=== PATIENT | male | born 1980 | race Caucasian/White ===

== ENCOUNTER 2017-01-15 14:09 | Emergency (ER) | payer MEDICAID, OTHER ==
[~2017-01-15] VITALS: Ht 167.6 cm; Wt 75.0 kg
[~2017-01-15 14:09] MED LIST: CYCL-319 PO; HYDR-3498 PO; IBUP400T22 PO
[2017-01-15 14:13] VITALS: Ht 167.6 cm; Wt 75.0 kg
[2017-01-15] MEDS ORDERED: KETOROLAC 60 MG INJ IM STA (16:09)
--- NOTE | 2017-01-15 16:49 | RADRPT ---
PROCEDURE: XR Left Foot. CLINICAL INDICATION: Left foot pain. TECHNIQUE: Three views. Frontal, lateral, and oblique. COMPARISON: None. FINDINGS: There is no fracture or dislocation. The soft tissues are normal. Articular surfaces are intact. There is an os trigonum, a normal variant. There is no lytic or blastic lesion. There is no radiopaque foreign body. IMPRESSION: 1. Os trigonum, a normal variant. 2. Otherwise normal images of the left foot. RPTAT: QQ .Ramesh Angeles MD, MD Date Time Electronically viewed and signed by .Ramesh Angeles MD, MD on 01/15/2017 16:48 .R/
[2017-01-15] MEDS ORDERED: IBUP-1542 PO (17:19)
--- NOTE | 2017-01-15 17:50 | ERD ---
ER Documentation Chief Complaint Date/Time DATE: 01/15/17 TIME: 17:46 Chief Complaint Complains of left foot pain HPI 36-year-old female patient with with no significant past medical history presents the ED complaining of left foot pain started 3 months ago, due to an injury. States that he was trying to jump a fence and accidentally injured his left foot. Denies any bilateral ankle pain. Denies any nausea, vomiting, sensation, loss of range of motion, fever, chills. Denies any head or neck injuries. Denies any loss of consciousness. ROS All systems reviewed and are negative except as per history of present illness. Medications Home Meds Active Scripts Ibuprofen* (Motrin*) 600 Mg Tab, 600 MG PO Q6, #30 TAB take with food Prov:AVIS TOMLINSON PA-C 01/15/17 Hydrocodone Bit-Acetaminophen* (Mon[place]*) 5-325 Mg Tab, 1 TAB PO Q6 Y for PAIN, # 7 TAB Prov:MATTHEW MARTÍNEZ 01/04/15 Ibuprofen* (Ibuprofen*) 400 Mg Tablet, 400 MG PO Q6H Y for PAIN, #20 TAB Prov:MATTHEW MARTÍNEZ 01/04/15 Cyclobenzaprine Hcl* (Cyclobenzaprine Hcl*) 10 Mg Tablet, 10 MG PO TID, #14 TAB Prov:MATTHEW MARTÍNEZ 01/04/15 Allergies Allergies: Coded Allergies: No Known Allergy (Unverified , 01/04/15) PMhx/Soc History of Surgery: No Anesthesia Reaction: No Hx Neurological Disorder: No Hx Respiratory Disorders: No Hx Cardiac Disorders: No Hx Psychiatric Problems: No Hx Miscellaneous Medical Probl: No Hx Alcohol Use: No Hx Substance Use: No Hx Tobacco Use: Yes Smoking Status: Current every day smoker Physical Exam Vitals Vital Signs Date Time Temp Pulse Resp B/P Pulse Ox O2 Delivery O2 Flow Rate FiO2 01/15/17 14:13 98.0 89 20 128/91 99 Physical Exam Const: Jto-pyr-lmxzlkfam, well-nourished. In no acute distress. Head: Atraumatic, normocephalic Eyes: Normal Conjunctiva without injection ENT: Normal external ear, nose and mouth. Neck: Full range of motion. No meningismus. Resp: Clear to auscultation bilaterally. No wheezing, rhonchi, rales, or crackles. No accessory muscle use. No retractions. Cardio: Regular rate and rhythm, no murmurs Skin: No petechiae or rashes Back: No midline tenderness. No CVA tenderness. Ext: No cyanosis, or edema. Cap refill less than 2 seconds. Distal pulses intact bilaterally. Tenderness palpation of the dorsal aspect of patient's left foot. No deformities. No warmth to touch. Full range of motion with flexion, extension. No erythema. Neur: Awake and alert. Normal gait and coordination. Muscle strength 5/5. Sensation intact bilaterally. Psych: Normal Mood and Affect Results 24 hrs Current Medications Medications (Trade) Dose Ordered Sig/Wade Route PRN Reason Start Time Stop Time Status Last Admin Dose Admin Ketorolac Tromethamine (Toradol) 60 mg ONCE STAT IM 01/15/17 16:09 01/15/17 16:13 DC 01/15/17 16:56 Procedures/MDM 36-year-old male patient with no significant past medical history presents to the ED complaining of a left foot injury that occurred. Patient is afebrile and nontoxic-appearing. Patient has normal vital signs. A repeat left foot x- ray was ordered to further evaluate patient. Patient was treated here in the ED with Toradol with improvement of his pain. Patient is placed in a Zack wrap. Patient was ambulating without difficulty. Patient is neurovascularly intact. Patient's extremity symptoms have stabilized while they have been evaluated in the department and are appropriate for outpatient follow up. No evidence of fractures, dislocations, compartment syndrome, neurologic injury, vascular injury, open joint, open fracture, tendon laceration, septic arthritis , osteomyelitis, DVT, foreign body, or other emergent conditions. Discharge medications: Ibuprofen Follow up with primary care physician in 1-2 days. Instructed patient to return to the ED sooner for any worsening symptoms. Patient's questions were answered. Patient understood and agreed with discharge plan. Patient discharged stable. Departure Diagnosis: Primary Impression: Left foot pain Condition: Stable Patient Instructions: Contusion, Foot, Sprain Foot Referrals: COMMUNITY CLINICS YOU HAVE RECEIVED A MEDICAL SCREENING EXAM AND THE RESULTS INDICATE THAT YOU DO NOT HAVE A CONDITION THAT REQUIRES URGENT TREATMENT IN THE EMERGENCY DEPARTMENT. FURTHER EVALUATION AND TREATMENT OF YOUR CONDITION CAN WAIT UNTIL YOU ARE SEEN IN YOUR DOCTORS OFFICE WITHIN THE NEXT 1-2 DAYS. IT IS YOUR RESPONSIBILITY TO MAKE AN APPOINTMENT FOR FOLOW-UP CARE. IF YOU HAVE A PRIMARY DOCTOR --you should call your primary doctor and schedule an appointment IF YOU DO NOT HAVE A PRIMARY DOCTOR YOU CAN CALL OUR PHYSICIAN REFERRAL HOTLINE AT IF YOU CAN NOT AFFORD TO SEE A PHYSICIAN YOU CAN CHOSE FROM THE FOLLOWING [facility] [address] [facility] [address] [facility] [address] [facility] [address] [facility] [address] [facility]. [facility] [address] [facility]. [facility] YOU HAVE RECEIVED A MEDICAL SCREENING EXAM AND THE RESULTS INDICATE THAT YOU DO NOT HAVE A CONDITION THAT REQUIRES URGENT TREATMENT IN THE EMERGENCY DEPARTMENT. FURTHER EVALUATION AND TREATMENT OF YOUR CONDITION CAN WAIT UNTIL YOU ARE SEEN IN YOUR DOCTORS OFFICE WITHIN THE NEXT 1-2 DAYS. IT IS YOUR RESPONSIBILITY TO MAKE AN APPOINTMENT FOR FOLOW-UP CARE. IF YOU HAVE A PRIMARY DOCTOR --you should call your primary doctor and schedule and appointment IF YOU DO NOT HAVE A PRIMARY DOCTOR YOU CAN CALL OUR PHYSICIAN REFERRAL HOTLINE AT . IF YOU CAN NOT AFFORD TO SEE A PHYSICIAN YOU CAN CHOSE FROM THE FOLLOWING [facility]: [facility] [address] [place] [address] [facility] [address] [place] [address] [facility] [address] [place] [address] [facility] Urgent Care 7 a.m.- 11 p.m. Every Day of the Week NO APPOINTMENT OR AUTHORIZATION NEEDED SO [facility] Hours: Mon-Fri 9:00 AM - 5:00 PM Additional Instructions: Call your primary care doctor TOMORROW for an appointment during the next 2-3 days.See the doctor sooner or return here if your condition worsens before your appointment time. AVIS TOMLINSON PA-C Jan 15, 2017 17:50 AVIS TOMLINSON PA-C Jan 15, 2017 17:50
== END 2017-01-15 18:42 | disposition home or self-care (01) ==
LOC: FTE 14:09
DX: M79.672 Pain in left foot (principal); F17.210 Nicotine dependence, cigarettes, uncomplicated
CPT/HCPCS: 73630; 96372; J1885; Z7502